=== PATIENT | male | born 1940 | race Caucasian/White ===

== ENCOUNTER 2021-05-01 08:13 | Observation (INO) | payer MEDICARE ==
[~2021-05-01] VITALS: Ht 173 cm; Wt 78.7 kg
[~2021-05-01 08:13] MED LIST: ASPIR 8181 MG PO; ASPIRIN81 MG PO; BRILINTA90 MG PO; BUTALB-ACETAMI1 EAC1 PO; CELEBREX 200MG200 MG PO; CELECOXIB200 MG PO; CETIRIZINE HCL10 MG PO; COREG 25MG TAB25 MG PO; CRESTOR20 MG PO; ESCITALOPRAM OX10 MG PO; FERROUS SULFAT325 M2 PO; GLUCOPHAGE500 MG PO; IMDUR ER TAB 3030 MG PO; K-DUR TAB 20 M20 MEQ PO; K-TAB ER10 MEQ PO; LASIX 40 MG TAB40 MG PO; LASIX20 MG PO; LISINOPRIL10 MG PO; METOPROLOL TART25 MG PO; NITROSTAT 0.40.4 MG SL; NORVASC 5 MG TAB5 MG PO; PLAVIX 75 MG TA75 MG PO; PLAVIX75 MG PO; POTASSIUM; PROTONIX40 MG PO; RANEXA1000 MG PO; RANEXA500 MG PO; SENNA8.6 MG PO; TRADJENTA5 MG PO; TYLENOL 325MG325 MG PO; ZANTAC 150 MG150 MG PO; ZOCOR40 MG PO; ZOFRAN ODT 4 MG4 MG PO; ZOFRAN4 MG PO; ZYRTEC10 MG PO
[2021-05-01 09:08] LABS: HEMOGLOBIN 13.7 gm/dl (14.0-17.5); RED BLOOD COUNT 4.54 M/UL (4.20-5.50); WHITE BLOOD COUNT 6.2 K/UL (4.5-11.0)
[2021-05-01] MEDS ORDERED: LEVOTHYROXINE75 MC1 PO (09:42)
[2021-05-01] MEDS ORDERED: CYMBALTA30 MG PO (12:21)
[2021-05-01] MEDS ORDERED: HYDROCODON-ACE1 EAC6 PO (12:21)
[2021-05-01] MEDS ORDERED: NEURONTIN100 MG PO (12:21)
[2021-05-01] MEDS ORDERED: NITROSTAT0.4 MG SL (12:22)
[2021-05-01] MEDS ORDERED: DAILY-VITE1 EACH PO (13:12)
[2021-05-01] MEDS ORDERED: LASIX 40 MG TAB40 MG PO (13:12)
[2021-05-01] MEDS ORDERED: TYLENOL EXTRA500 MG PO (13:13)
[2021-05-01] MEDS ORDERED: BASAGLAR K100 UNIT/1 SC (13:15)
[2021-05-01] MEDS ORDERED: COREG6.25 MG PO (13:16)
[2021-05-01] MEDS ORDERED: PROTONIX40 MG PO (13:21)
[2021-05-01] MEDS ORDERED: [UNRECOGNIZED DRUG - OTHER] (18:17)
[2021-05-01] MEDS ORDERED: LIPITOR TAB 1010 MG PO (18:57)
[2021-05-01] MEDS ORDERED: RANEXA1000 MG PO (21:27)
[2021-05-01] MEDS ORDERED: LEXAPRO20 MG PO (21:36)
[2021-05-02 06:55] LABS: HEMOGLOBIN 13.2 gm/dl (14.0-17.5); RED BLOOD COUNT 4.43 M/UL (4.20-5.50); WHITE BLOOD COUNT 5.4 K/UL (4.5-11.0)
[2021-05-03 05:56] LABS: RED BLOOD COUNT 4.06 M/UL (4.20-5.50); WHITE BLOOD COUNT 5.7 K/UL (4.5-11.0)
[2021-05-03] MEDS ORDERED: ISOSORBIDE MONO30 MG PO (09:02)
[2021-05-03] MEDS ORDERED: AMLODIPINE BESYL5 MG PO (09:02)
[2021-05-03] MEDS ORDERED: FERROUS GLUCON324 M2 PO (10:15)
== END 2021-05-03 13:11 | disposition home or self-care (01) ==
LOC: ER1 08:13 → CDU 10:56 → M/S 10:56
PROVIDERS: Physician Assistant Medical; ADMIT Internal Medicine Infectious Disease
DX: I13.0 Hypertensive heart and chronic kidney disease with heart failure and stage 1 through stage 4 chronic kidney disease, or unspecified chronic kidney disease (principal); I50.23 Acute on chronic systolic (congestive) heart failure; I45.10 Unspecified right bundle-branch block; N18.30 Chronic kidney disease, stage 3 unspecified; K21.9 Gastro-esophageal reflux disease without esophagitis; Z95.1 Presence of aortocoronary bypass graft; E11.22 Type 2 diabetes mellitus with diabetic chronic kidney disease; I25.5 Ischemic cardiomyopathy; E78.5 Hyperlipidemia, unspecified; E03.9 Hypothyroidism, unspecified; F32.9 Major depressive disorder, single episode, unspecified; I27.20 Pulmonary hypertension, unspecified; Z20.822 Contact with and (suspected) exposure to COVID-19; I08.1 Rheumatic disorders of both mitral and tricuspid valves; Z79.4 Long term (current) use of insulin; Z79.01 Long term (current) use of anticoagulants; Z79.899 Other long term (current) drug therapy
CPT/HCPCS: 96374; ECHO; 36415; 71045; 80048; 80053; 80061; 81001; 82550; 82553; 82607; 82728; 82962; 83036; 83540; 83550; 83605; 83735; 83874; 83880; 84443; 84484; 85025; 85027; 93005; 93306; 96375; 96376; 99285; G0378; J1756; J1940; U0002

== ENCOUNTER 2021-05-21 17:46 | Emergency (ER) | payer MEDICARE ==
[~2021-05-21 17:46] MED LIST changes: +AMLODIPINE BESYL5 MG PO; +BASAGLAR K100 UNIT/1 SC; +COREG6.25 MG PO; +CYMBALTA30 MG PO; +DAILY-VITE1 EACH PO; +FERROUS GLUCON324 M2 PO; +HYDROCODON-ACE1 EAC6 PO; +ISOSORBIDE MONO30 MG PO; +LEVOTHYROXINE75 MC1 PO; +LEXAPRO20 MG PO; +LIPITOR TAB 1010 MG PO; +NEURONTIN100 MG PO; +NITROSTAT0.4 MG SL; +TYLENOL EXTRA500 MG PO; +[UNRECOGNIZED DRUG - OTHER]
[2021-05-22 00:05] LABS: HEMOGLOBIN 13.6 gm/dl (14.0-17.5); RED BLOOD COUNT 4.52 M/UL (4.20-5.50); WHITE BLOOD COUNT 6.1 K/UL (4.5-11.0)
== END 2021-05-22 02:30 | disposition home or self-care (01) ==
LOC: ER1 17:46
PROVIDERS: Student in an Organized Health Care Education/Training Program
DX: E87.70 Fluid overload, unspecified (principal); I11.0 Hypertensive heart disease with heart failure; I50.9 Heart failure, unspecified; E11.9 Type 2 diabetes mellitus without complications; Z95.1 Presence of aortocoronary bypass graft; Z20.822 Contact with and (suspected) exposure to COVID-19
CPT/HCPCS: 71045; 78452; 80053; 82550; 82553; 83690; 83735; 83874; 83880; 84100; 84439; 84443; 84484; 85025; 93005; 99285; A9502; J2785; U0002

== ENCOUNTER 2021-08-23 18:02 | Inpatient (IN) | payer MEDICARE ==
[~2021-08-23] VITALS: Ht 177.8 cm; Wt 78.5 kg
[2021-08-23 18:51] LABS: HEMOGLOBIN 12.5 gm/dl (14.0-17.5); RED BLOOD COUNT 4.38 M/UL (4.20-5.50); WHITE BLOOD COUNT 5.7 K/UL (4.5-11.0)
[2021-08-24 06:57] LABS: HEMOGLOBIN 12.2 gm/dl (14.0-17.5); RED BLOOD COUNT 4.33 M/UL (4.20-5.50); WHITE BLOOD COUNT 6.2 K/UL (4.5-11.0)
[2021-08-26 06:46] LABS: HEMOGLOBIN 11.7 gm/dl (14.0-17.5); RED BLOOD COUNT 4.21 M/UL (4.20-5.50)
[2021-08-26 06:50] LABS: WHITE BLOOD COUNT 3.9 K/UL (4.5-11.0)
[2021-08-27 06:45] LABS: HEMOGLOBIN 11.1 gm/dl (14.0-17.5); RED BLOOD COUNT 3.97 M/UL (4.20-5.50)
[2021-08-27 06:53] LABS: WHITE BLOOD COUNT 5.1 K/UL (4.5-11.0)
[2021-08-28 07:11] LABS: HEMOGLOBIN 12.1 gm/dl (14.0-17.5); RED BLOOD COUNT 4.26 M/UL (4.20-5.50); WHITE BLOOD COUNT 4.8 K/UL (4.5-11.0)
[2021-08-29 07:48] LABS: HEMOGLOBIN 11.9 gm/dl (14.0-17.5); RED BLOOD COUNT 4.31 M/UL (4.20-5.50); WHITE BLOOD COUNT 4.9 K/UL (4.5-11.0)
--- NOTE | 2021-08-29 13:17 | NUR ---
Called Dr. Wall - reported patient had a ten beat run of vtach, orders for a mag. lab draw from a.m. labs and per Dr. Wall cardiology will be consulted again.
[2021-08-30 06:54] LABS: HEMOGLOBIN 11.3 gm/dl (14.0-17.5); WHITE BLOOD COUNT 4.4 K/UL (4.5-11.0)
[2021-08-30] MEDS ORDERED: LOPRESSOR 25 MG25 MG PO (15:22)
[2021-08-30] MEDS ORDERED: ISOSORBIDE MONO60 MG PO (15:22)
[2021-08-30] MEDS ORDERED: ASPIRIN81 MG PO (15:22)
== END 2021-08-30 16:43 | disposition home health service (06) | DRG 286 ==
LOC: ER1 18:02 → CDU 21:02 → M/S 21:02
PROVIDERS: Internal Medicine; Physician Assistant; ADMIT Internal Medicine
PROC: 4A023N7 Measurement of Cardiac Sampling and Pressure, Left Heart, Percutaneous Approach (ICD-10-PCS; principal; 2021-08-26)
PROC: B2111ZZ Fluoroscopy of Multiple Coronary Arteries using Low Osmolar Contrast (ICD-10-PCS; 2021-08-26)
DX: I25.119 Atherosclerotic heart disease of native coronary artery with unspecified angina pectoris (principal); I50.23 Acute on chronic systolic (congestive) heart failure; I13.0 Hypertensive heart and chronic kidney disease with heart failure and stage 1 through stage 4 chronic kidney disease, or unspecified chronic kidney disease; N17.9 Acute kidney failure, unspecified; Z20.822 Contact with and (suspected) exposure to COVID-19; I25.5 Ischemic cardiomyopathy; E03.9 Hypothyroidism, unspecified; D69.6 Thrombocytopenia, unspecified; N18.30 Chronic kidney disease, stage 3 unspecified; F32.A Depression, unspecified; I45.10 Unspecified right bundle-branch block; I08.1 Rheumatic disorders of both mitral and tricuspid valves; E11.22 Type 2 diabetes mellitus with diabetic chronic kidney disease; I27.20 Pulmonary hypertension, unspecified; Z95.1 Presence of aortocoronary bypass graft; Z95.5 Presence of coronary angioplasty implant and graft; Z79.4 Long term (current) use of insulin; Z79.82 Long term (current) use of aspirin; Z90.49 Acquired absence of other specified parts of digestive tract; Z91.14 Patient's other noncompliance with medication regimen
CPT/HCPCS: 36415; 70450; 71045; 80048; 80053; 81001; 82550; 82553; 82570; 82962; 83735; 83874; 83880; 84100; 84156; 84484; 85025; 85610; 85730; 93005; 96372; 96374; 97116; 97161; 99152; 99153; 99285; C1769; G0378; J1644; J1650; J1940; J2405; J7030; J7040; Q9965; U0002

== ENCOUNTER → 2021-11-02 | Outpatient (CLI) | payer MEDICARE ==
[~2021-11-02] MED LIST changes: +ISOSORBIDE MONO60 MG PO; +LOPRESSOR 25 MG25 MG PO
== END ==
LOC: LAB 11:49
DX: I50.9 Heart failure, unspecified (principal); R06.02 Shortness of breath
CPT/HCPCS: 36415; 83880

== ENCOUNTER → 2022-02-10 | Outpatient (CLI) | payer MEDICARE | LOC: HEART 5 09:10 | DX: I20.9 Angina pectoris, unspecified (principal); I08.3 Combined rheumatic disorders of mitral, aortic and tricuspid valves; I27.20 Pulmonary hypertension, unspecified | CPT/HCPCS: 93306 ==

== ENCOUNTER → 2022-05-17 | Outpatient (CLI) | payer MEDICARE | LOC: HEART 5 13:25 | DX: I20.9 Angina pectoris, unspecified (principal); R94.30 Abnormal result of cardiovascular function study, unspecified; I27.20 Pulmonary hypertension, unspecified; I08.1 Rheumatic disorders of both mitral and tricuspid valves | CPT/HCPCS: 93306 ==